=== PATIENT | male | born 1960 | race Caucasian/White ===

== ENCOUNTER 2018-06-17 09:34 | Inpatient (IN) | payer OTHER ==
[~2018-06-17] VITALS: Ht 175.3 cm; Wt 110.2 kg
[2018-06-17] VITALS (11 sets, daily range): BP systolic 126–162; BP diastolic 76–97
--- NOTE | 2018-06-17 07:43 | Pre-Procedure Note/Attestation ---
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 I attest that, if there was a reasonable possibility of needing a blood transfusion, the patient (or the patient's legal billing representative) was given the [facility] standardized written summary, pursuant to the Gregorio Timoteo Blood Safety Act ([place] Health and Safety Code # 1645, as amended). I attest that I re-evaluated the patient just prior to the surgery and that there has been no change in the patient's H&P, except as documented below:NO CHANGES John White MD Jun 17, 2018 07:43
[2018-06-17] MEDS ORDERED: NKM (10:24)
[2018-06-17] MEDS ORDERED: Thrombin 5000 units TOPIC ONE (10:30)
[2018-06-17] MEDS ORDERED: Gelfoam Size TOPIC ONE (10:31)
[2018-06-17] MEDS ORDERED: Bupivacaine w/Epi 0.5% 30ml Vial INJ ONE (10:31)
[2018-06-17] MEDS ORDERED: Bacitracin 50000 Units Vial ONE (10:31)
[2018-06-17] MEDS ORDERED: fentaNYL 100 mcg/2 mL IV ONE (10:47)
[2018-06-17] MEDS ORDERED: Midazolam 2mg/2ml Inj ONE ×2 (10:48→13:47)
[2018-06-17] MEDS ORDERED: Lidocaine 1% MPF 10mg/ml 5ml ONE (10:49)
[2018-06-17] MEDS ORDERED: Succinylcholine 20mg/ml 10ml vial ONE (10:58)
[2018-06-17] MEDS ORDERED: Rocuronium Bromide 50mg/5ml Inj IV ONE (10:58)
[2018-06-17] MEDS ORDERED: Dexamethasone 4mg/ml vial ONE (11:00)
[2018-06-17] MEDS ORDERED: Propofol 1,000mg/ 100ml btl IV ONE (11:00)
[2018-06-17] MEDS ORDERED: Phenylephrine 10mg/ml Vial ONE (11:00)
[2018-06-17] MEDS ORDERED: Sterile Water Irrig 1000ml IRRIG ONE (11:00)
[2018-06-17] MEDS ORDERED: NS Irrig 1000ml ONE (11:00)
[2018-06-17] MEDS ORDERED: Morphine Sulfate 10mg/ml Inj ONE (12:33)
[2018-06-17] MEDS ORDERED: Ketorolac 30mg Inj ONE (12:35)
[2018-06-17] MEDS ORDERED: Sodium Chloride 10ml vial INJ ONE (12:35)
[2018-06-17] MEDS ORDERED: Neostigmine 1mg/ml 10ml Inj ONE (12:35)
[2018-06-17] MEDS ORDERED: Glycopyrrolate 0.2mg/ml 1ml Vial ONE (12:35)
[2018-06-17] MEDS ORDERED: Acetaminophen (Non formulary) 100 ML IV ONE (12:45)
--- NOTE | 2018-06-17 12:59 | Anethesia Preoperative Eval ---
Anesthesia Pre-op PMH/ROS General Date of Evaluation: Jun 17, 2018 Time of Evaluation: 10:50 Anesthesiologist: Lily ASA Score: ASA 2 Mallampati Score Class I : Soft palate, uvula, fauces, pillars visible Class II: Soft palate, uvula, fauces visible Class III: Soft palate, base of uvula visible Class IV: Only hard plate visible Mallampati Classification: Class III Surgeon: Christopher Diagnosis: Cervical radiculopathy Surgical Procedure: ACDF Anesthesia History: none Family History: no anesthesia problems Allergies: Coded Allergies: IODINE (Verified Allergy, Unknown, 06/16/18) Uncoded Allergies: shellfish (Allergy, Severe, 06/17/18) eyes blood shot, swollen throat,face turns white Medications: see eMAR Patient NPO?: Yes NPO Date: Jun 16, 2018 NPO Time: 2330 Past Medical History Cardiovascular: Denies: HTN, CAD, IA, valve dz, arrhythmia, other Pulmonary: Denies: asthma, COPD, VEE, other Gastrointestinal/Genitourinary: Reports: GERD Neurologic/Psychiatric: Reports: depression/anxiety, other - chroic pain; Denies: dementia, CVA, TIA Endocrine: Denies: DM, hypothyroidism, steroids, other HEENT: Denies: cataract (L), cataract (R), glaucoma, KALISPEL (L), KALISPEL (R), other Hematology/Immune: Denies: anemia, DVT, bleeding disorder, other Musculoskeletal/Integumentary: Denies: OA, RA, DJD, DDD, edema, other Other: obesity PMH Narrative: as above PSxH Narrative: Back Sx, knee scope Anesthesia Pre-op Phys. Exam Physician Exam Last Vital Signs Date Time Temp Pulse Resp B/P (MAP) Pulse Ox O2 Delivery O2 Flow Rate FiO2 06/17/18 10:25 Room Air 06/17/18 10:20 98.3 66 20 127/87 (100) 97 Constitutional: NAD Neurologic: CN 2-12 intact Cardiovascular: RRR, no M/R/G Respiratory: CTA Gastrointestinal: S/NT/ND Airway Exam Mallampati Score: Class III MO: limited Neck: stiff ROM: limited Teeth: missing Dentures: no upper, no lower Anesthesia Pre-op A/P Labs See chart Studies Pre-op Studies: EKG - NSR Risk Assessment & Plan Assessment: ASA2 Plan: Ga with ETT,neuromonitoring Status Change Before Surgery: No Pre-Antibiotics Drug: Ancef 2gr. Given Within 1 Hr of Incision: Yes Time Given: 12:15 Jin Bautista MD Jun 17, 2018 12:59
[2018-06-17] MEDS ORDERED: DiphenhydrAMINE 50mg/ml Inj IVP PRN (13:00)
[2018-06-17] MEDS ORDERED: Ketorolac 30mg Inj IV PRN ×2 (13:00→16:45)
[2018-06-17] MEDS ORDERED: Hydromorphone 0.5mg/0.5ml inj IVP PRN (13:00)
[2018-06-17] MEDS ORDERED: LR 1000ml 1,000 ML IVLG SCH (13:00)
[2018-06-17] MEDS ORDERED: Midazolam 2mg/2ml Inj IVP PRN (13:00)
[2018-06-17] MEDS ORDERED: Meperidine 50mg/ml Inj(FOR RIGORS ONLY) IV PRN (13:00)
[2018-06-17] MEDS ORDERED: Propofol 200mg/20ml IV ONE (14:07)
--- NOTE | 2018-06-17 16:07 | Immediate Post-Op Evaluation ---
Immediate Post-Op Evalulation Immediate Post-Op Evalulation Procedure: ACDF C5-C6-C7 Date of Evaluation: Jun 17, 2018 Time of Evaluation: 16:05 IV Fluids: 1200 Blood Products: none Estimated Blood Loss: 100 Urinary Output: 250 Blood Pressure Systolic: 136 Blood Pressure Diastolic: 74 Pulse Rate: 78 Respiratory Rate: 20 O2 Sat by Pulse Oximetry: 96 Temperature (Fahrenheit): 97.8 Pain Score (1-10): 2 Nausea: No Vomiting: No Complications none Patient Status: patent, extubated, none Hydration Status: adequate Jin Bautista MD Jun 17, 2018 16:07
--- NOTE | 2018-06-17 16:59 | Diagnostic Imaging Report ---
INDICATION: Pain, intraoperative TECHNIQUE: Intraoperative imaging Fluoroscopy time: 38.5 seconds Total dose: 0.95514 mGym2 Total number of images: 4 COMPARISON: None FINDINGS: Intraoperative images demonstrate localizer tool projected anterior to the C6-7 disc. Subsequent images document placement of disc prostheses at C5-6 and C6-7. IMPRESSION: Intraoperative imaging, as described
--- NOTE | 2018-06-17 17:15 | Operative Note - Dictated ---
DATE OF OPERATION: 06/17/2018 PREOPERATIVE DIAGNOSES: 1. Clinical cervical discopathy, C5-C6, C6-C7 with traumatic spondylopathy, C5-C6, C6-C7. 2. Cervical stenosis, C6 and C7. 3. Bilateral cervical radiculopathy, C6-C7. POSTOPERATIVE DIAGNOSES: 1. Clinical cervical discopathy, C5-C6, C6-C7 with traumatic spondylopathy, C5-C6, C6-C7. 2. Cervical stenosis, C6 and C7. 3. Bilateral cervical radiculopathy, C6-C7. PROCEDURE PERFORMED: Artificial disc replacement at C5-C6, C6-C7. SURGEON: John White M.D. PROTECTION ENGINEER: Devan Teran. ANESTHESIOLOGIST: Jin Bautista M.D. ANESTHESIA: General endotracheal combined anesthetic. INTRAOPERATIVE FINDINGS: Stenosis noted at C6 and C7 with solid fitment of artificial disc replacement at C5-C6 and C6-C7 with Mobi-C artificial disc. No untoward neuromonitoring changes. ESTIMATED BLOOD LOSS: Minimal. COMPLICATIONS: None. INDICATIONS FOR PROCEDURE: This is a pleasant gentleman with a significant spinal injury and subsequent persistent symptomatology with the neck pain as well as bilateral arm radiculopathy. The patient had failed a reasonable amount of conservative treatment. MRI demonstrated corroborating symptomatology of C5-C6 and C6-C7 with the patient's objective symptoms. The patient failed reasonable conservative treatment. He was indicated for diskectomy, artificial disc replacement, C5-C6, C6-C7. No guarantees of outcome were given. The patient was medically optimized and subsequently taken to the operating room. DESCRIPTION OF PROCEDURE: On the day of surgery, the patient was medically assessed. Preop clearance was reviewed. NSAIDs had been stopped and questions were answered. The patient was subsequently taken to operating room, anesthetized by the anesthesiologist. Appropriate lines were inserted. The patient's arms were tucked on the side of the patient with bony prominences well padded. The cervical spine was prepped and draped in usual sterile fashion for right-sided approach and approximately a 1.5 inch incision was made with lateral aspect of the incision over the medial border of the sternocleidomastoid. Once the surgical pause undertaken and antibiotics were delivered, the patient's incision was made with fascial incision in line of the skin incision. The platysmal dissection was carried cephalad and caudad. The cervical fascia was identified and bluntly dissected. The carotid pulsation was lateral. The distal structures were placed contralaterally and my retail assistant retracted the distal structures. Table top mount retractor was also applied for assistance and facilitating the exposure. Subsequently, the longus colli was elevated once the C5-C6, C6-C7 level was identified along C5 to C7. The [place] pins were placed. After self-retaining retractors were placed and [place] pin placement was attempted to be essential as possible in the medial-lateral vertebral body. The [place] pin distractor was applied and initially the diskectomy was performed at C5-C6 subsequently C6-C7 with appropriately sized decompression foraminotomy. The PLL was resected and the uncovertebral joint was thinned on the superior endplate of C6 and C7 to accommodate the contour of the artificial disc replacement. Appropriate shavings were made to flatten the vertebral body to a certain degree without excess removal of the endplate. Once artificial disc replacement was placed at C5-C6, the similar decompression and foraminotomy and bony carpentry was performed at C6-C7 for accepting artificial disc at C6-C7. The wound was copiously irrigated. No CSF leak was noted. No untoward events for SSEP. Complications, none. Implant, Mobi-C artificial disc placement. The platysma was reapproximated with 3-0 Vicryl and 4-0 Monocryl for skin. John White M.D. DR: DORIS JOB#: [id number] CC:
--- NOTE | 2018-06-17 17:52 | General Progress Note ---
Assessment/Plan Assessment/Plan: 1. Clinical cervical discopathy, C5-C6, C6-C7 with traumatic spondylopathy, C5-C6, C6-C7. 2. Cervical stenosis, C6 and C7. 3. Bilateral cervical radiculopathy, C6-C7. PLAN 1. incentive spirometry 2. SCD 3. PT evaluation and therapy 4. Hydration 5. Pain management 6. discharge once stable with outpatient follow up Subjective Allergies: Coded Allergies: IODINE (Verified Allergy, Unknown, 06/16/18) Uncoded Allergies: shellfish (Allergy, Severe, 06/17/18) eyes blood shot, swollen throat,face turns white Subjective asked to followup Objective Last 24 Hour Vital Signs Date Time Temp Pulse Resp B/P (MAP) Pulse Ox O2 Delivery O2 Flow Rate FiO2 06/17/18 16:55 98.0 70 17 141/93 97 Nasal Cannula 3 06/17/18 16:45 72 15 143/93 99 Nasal Cannula 3 06/17/18 16:30 71 16 149/97 99 Simple Mask 6 06/17/18 16:20 72 21 134/96 97 Simple Mask 6 06/17/18 16:08 81 17 144/94 100 Simple Mask 10 06/17/18 16:07 78 20 96 06/17/18 16:03 86 17 141/92 100 Simple Mask 10 06/17/18 15:58 97.8 84 19 137/87 94 Simple Mask 6 06/17/18 10:25 Room Air 06/17/18 10:20 98.3 66 20 127/87 (100) 97 Height (Feet): 5 Height (Inches): 9.00 Weight (Pounds): 243 Objective WDWN NAD clear breath sounds bilaterally without rhonchi or wheeze [id number] without MRG NABS nontender no HSM no CCE nonfocal Curtis Galvez MD Jun 17, 2018 17:52
[2018-06-17] MEDS: Docusate 100mg cap ORAL SCH (19:29)
[2018-06-17] MEDS: D5 1/2NS w/KCl 20mEq 1,000 ML IV SCH (19:30)
[2018-06-17] MEDS: ceFAZolin sod 1 GM in D5W 55 ML IV SCH (19:58)
[2018-06-17] MEDS: Hydromorphone 0.5mg/0.5ml inj IVP PRN (23:25)
[2018-06-18] VITALS: BP 130/85
[2018-06-18] MEDS: D5 1/2NS w/KCl 20mEq 1,000 ML IV SCH ×2 (01:37→09:30)
[2018-06-18 04:00] VITALS: BP 128/82
[2018-06-18] MEDS: Hydromorphone 0.5mg/0.5ml inj IVP PRN ×2 (04:08→08:15)
[2018-06-18] MEDS: ceFAZolin sod 1 GM in D5W 55 ML IV SCH (04:08)
[2018-06-18 06:45] LABS: ANION GAP 7 mmol/L (5-15); BLOOD UREA NITROGEN 10 mg/dL (7-18); CALCIUM 8.5 MG/DL (8.5-10.1); CARBON DIOXIDE 27 MMOL/L (21-32); CHLORIDE 102 MMOL/L (98-107); CREATININE 0.9 MG/DL (0.55-1.30); POTASSIUM 4.3 MMOL/L (3.5-5.1); SODIUM 136 MMOL/L (136-145)
--- NOTE | 2018-06-18 07:59 | 48 Hour Post Anesthesia Eval ---
Post Anesthesia Evaluation Procedure: ACDF C5-C6-C7 Date of Evaluation: Jun 18, 2018 Time of Evaluation: 07:57 Blood Pressure Systolic: 136 0: 74 Pulse Rate: 68 Respiratory Rate: 22 Temperature (Fahrenheit): 97.6 O2 Sat by Pulse Oximetry: 97 Airway: patent Nausea: No Vomiting: No Pain Intensity: 3 Hydration Status: adequate Cardiopulmonary Status: stable Mental Status/LOC: patient returned to baseline Follow-up Care/Observations: n/a Post-Anesthesia Complications: none Follow-up care needed: ready to discharge Jin Bautista MD Jun 18, 2018 07:59
[2018-06-18 08:00] VITALS: BP 132/81
[2018-06-18] MEDS: Docusate 100mg cap ORAL SCH (08:14)
[2018-06-18] MEDS ORDERED: NORCO 10-325 T1 EACH ORAL (10:38)
[2018-06-18 12:00] VITALS: BP 113/70
[2018-06-18] MEDS ORDERED: Tubing IV Secondary IV ONE (12:14)
--- NOTE | 2018-06-18 17:20 | General Progress Note ---
Assessment/Plan Assessment/Plan: 1. Clinical cervical discopathy, C5-C6, C6-C7 with traumatic spondylopathy, C5-C6, C6-C7. 2. Cervical stenosis, C6 and C7. 3. Bilateral cervical radiculopathy, C6-C7. PLAN 1. stable and ambulating 2. mcmillan out 3. resume home meds; hold any anticoagulation 4. Maintain Hydration 5. Pain management 6. discharge home and follow up with Dr White Subjective Date patient seen: Jun 18, 2018 Time patient seen: 08:00 Allergies: Coded Allergies: IODINE (Verified Allergy, Unknown, 06/16/18) Uncoded Allergies: shellfish (Allergy, Severe, 06/17/18) eyes blood shot, swollen throat,face turns white Subjective doing well ready for dc Objective Last 24 Hour Vital Signs Date Time Temp Pulse Resp B/P (MAP) Pulse Ox O2 Delivery O2 Flow Rate FiO2 06/18/18 12:00 97.7 63 20 113/70 (84) 96 06/18/18 09:00 Room Air 06/18/18 08:00 97.7 66 20 132/81 (98) 96 06/18/18 07:59 68 22 97 06/18/18 04:00 97.6 79 18 128/82 (97) 96 06/18/18 00:00 98.1 78 18 130/85 (100) 96 06/17/18 21:00 Nasal Cannula 3.0 06/17/18 20:00 97.7 81 18 126/76 (93) 95 06/17/18 18:00 97.0 66 20 162/93 (116) 99 06/17/18 17:30 97.5 68 18 134/85 (101) 99 Intake and Output 06/17/18 06/18/18 19:00 07:00 Intake Total 1640 ml 1965 ml Output Total 750 ml 1400 ml Balance 890 ml 565 ml Intake Oral 240 ml 480 ml IV Total 1400 ml 1485 ml Output Urine Total 650 ml 1400 ml Estimated Blood Loss 100 ml # Bowel Movements 1 1 Laboratory Tests 06/18/18 05:35: Sodium Level 136, Potassium Level 4.3, Chloride Level 102, Carbon Dioxide Level 27, Anion Gap 7, Blood Urea Nitrogen 10, Creatinine 0.9, Estimat Glomerular Filtration Rate > 60, Glucose Level 125H, Calcium Level 8.5 Height (Feet): 5 Height (Inches): 9.00 Weight (Pounds): 243 Objective WDWN NAD clear breath sounds bilaterally without rhonchi or wheeze [id number] without MRG NABS nontender no HSM no CCE nonfocal Curtis Galvez MD Jun 18, 2018 17:20
--- NOTE | 2018-06-21 14:27 | Discharge Summary ---
Discharge Summary Hospital Course Date of Admission Jun 17, 2018 at 09:34 Date of Discharge Jun 18, 2018 at 12:15 Admitting Diagnosis Cervical discopathy, C5-C6, C6-C7 with traumatic spondylopathy, C5-C6, C6-C7. Cervical stenosis, C6 and C7. Bilateral cervical radiculopathy, C6-C7. Reason for Hospitalization: elective surgery HPI Marcus Tovar is a 57 year old male who was admitted on Jun 17, 2018 at 09:34 for Cervicalgia, Cervical Stenosis. Patient was admitted for elective surgery Patient with a significant spinal injury and subsequent persistent symptomatology with the neck pain as well as bilateral arm radiculopathy. The patient had failed a reasonable amount of conservative treatment. MRI demonstrated corroborating symptomatology of C5-C6 and C6-C7 with the patient's objective symptoms. The patient failed reasonable conservative treatment. The risks and benefits of surgery were discussed with patient in detail. Patient was consented for diskectomy, artificial disc replacement, C5-C6, C6- C7. Consultations Dr Galvez -IM Procedures s/p 06/17/[address] White Artificial disc replacement at C5-C6, C6-C7. Hospital Course status post surgery course of recovery uneventful initially IV fluids s/p perioperative antibiotics neurovascular status closely monitored, stable incision clean , dry, and intact pain management addressed, pain controlled hemodynamically stable ambulated with PT use of incentive spirometry was encouraged while in the bed fall precautions maintained; safe for ambulation tolerated soft diet , IV fluids discontinued Cepacol lozenges and Chloraseptic spray were on board as needed for comfort GI prophylaxis provided antiemetics were on board as needed voided freely after [place] discontinued bowel regimen instituted patient was stable for discharge discharge instructions provided follow up with surgeon as outpatient as advised by surgeon FINAL DIAGNOSES 1. Clinical cervical discopathy, C5-C6, C6-C7 with traumatic spondylopathy, C5- C6, C6-C7. 2. Cervical stenosis, C6 and C7. 3. Bilateral cervical radiculopathy, C6-C7. 4. s/p ADR C5 to C7 Discharge Medications Continued Medications: Hydrocodone Bit/Acetaminophen 10-325* ([place] 10-325*) 1 Each Tablet 1 TAB ORAL Q4H PRN for For Pain, #50 TAB 0 Refills (This prescription has been renewed) PRN PAIN Discharge Condition Upon Discharge: stable Discharge Disposition Patient was discharged to Home (01) Discharge Instructions Discharge Instructions Special Instructions I have been assigned to complete a D/C Summary on this account. I was not involved in the patient management Holly Cason NP Jun 21, 2018 14:27
--- NOTE | 2018-11-03 09:08 | Diagnostic Imaging Report ---
INDICATION: Pain, intraoperative TECHNIQUE: Intraoperative imaging Fluoroscopy time: 38.5 seconds Total dose: 0.33050 mGym2 Total number of images: 4 COMPARISON: None FINDINGS: Intraoperative images demonstrate localizer tool projected anterior to the C6-7 disc. Subsequent images document placement of disc prostheses at C5-6 and C6-7. IMPRESSION: Intraoperative imaging, as described
== END 2018-06-18 12:15 | disposition home or self-care (01) | DRG 518 ==
LOC: SDSOVERFLO 09:34 → 3E 16:29
PROC: 0RR30JZ Replacement of Cervical Vertebral Disc with Synthetic Substitute, Open Approach (ICD-10-PCS; principal; 2018-06-17 11:00)
DX: M50.122 Cervical disc disorder at C5-C6 level with radiculopathy (principal); M48.8X2 Other specified spondylopathies, cervical region; M48.02 Spinal stenosis, cervical region; M54.12 Radiculopathy, cervical region; V89.2XXS Person injured in unspecified motor-vehicle accident, traffic, sequela; M54.5 Low back pain
CPT/HCPCS: 36415; 72040; 76000; 80048; 86850; 86900; 86901; 87081; 94003; 94150; J2250; J2370; J2710